=== PATIENT | female | born 1960 | race Caucasian/White ===

== ENCOUNTER → 2017-02-18 | Outpatient (CLI) | payer OTHER ==
[~2017-02-18] MED LIST: AMIO200T7 PO; ASCO1TAB2 PO; CALC-586 PO; CITA-49 PO; FLUT16SP12 NS; LORA-326 PO; LOSA50TA17 PO; MAGN400T31 PO; MELO-32 PO; METF-200 PO; METH-310 PO; METO-482 PO; MULT-934 PO; OMEG1CAP17 PO; OMEP40CA52 PO; RIVA20TA PO; ROPI1TAB12 PO; SIMV40TA5 PO; TRAM50TA4 PO; VITA-286 PO; VITA150T PO
--- NOTE | 2017-02-18 17:31 | DI ---
INDICATION: ITS.REASON: R09.81 NASAL CONGESTION; R05 COUGH PROCEDURE: CHEST 2-VIEWS UPRIGHT (PA \T\ LAT) Encounter: Initial COMPARISON: June 14, 2016 FINDINGS: The lungs are clear without evidence of focal abnormal airspace opacity. There is no pleural effusion or pneumothorax. The heart size, mediastinal contours and pulmonary vascularity are within normal limits. There is no significant skeletal abnormality. IMPRESSION: No acute cardiopulmonary disease. .
== END ==
LOC: IMA 16:41
PROVIDERS: ATTEND Internal Medicine
DX: R09.81 Nasal congestion (principal); R05 Cough; E11.9 Type 2 diabetes mellitus without complications; I10 Essential (primary) hypertension
CPT/HCPCS: 36415; 84443

== ENCOUNTER → 2017-03-04 | Outpatient (CLI) | payer OTHER ==
[~2017-03-04] VITALS: Ht 165.1 cm; Wt 116.3 kg
== END ==
LOC: RC 11:32
PROVIDERS: ATTEND Internal Medicine Cardiovascular Disease
DX: I48.0 Paroxysmal atrial fibrillation (principal); J98.8 Other specified respiratory disorders; Z87.891 Personal history of nicotine dependence
CPT/HCPCS: 94060; 94726